=== PATIENT | male | born 1955 | race Native Hawaiian/Other Pacific Islander ===

== ENCOUNTER 2016-09-30 08:06 | Outpatient (CLI) | payer BC ==
[~2016-09-30 08:06] MED LIST: CLOP75TA2 PO; FURO40TA93 PO; GLIP10TA55 PO; HYDR25TA15 PO; HYZAAR1 TA1 PO; LANTUS100 MG/ML SC; METO50TA27 PO; METO5TAB38 PO; MINO10TA PO; PANT40TA PO; POT GLUCONAT595 MG PO; SIMV40TA57 PO; [UNRECOGNIZED DRUG - OTHER] PO
[2016-09-30 09:08] LABS: PLATELET COUNT 185 K/uL (142-355)
[2016-09-30 09:30] LABS: POTASSIUM 3.4 mmol/L (3.6-5.2); SODIUM 135 mmol/L (136-145)
== END 2016-09-30 20:07 | disposition home or self-care (01) ==
LOC: LABW 08:06
PROVIDERS: Nurse Practitioner Family
DX: J20.9 Acute bronchitis, unspecified (principal)
CPT/HCPCS: 36415; 80053; 85027

== ENCOUNTER 2016-10-06 16:01 | Outpatient (CLI) | payer BC | END 2016-10-06 20:39 | disposition home or self-care (01) | LOC: RAD 16:01 | DX: M54.41 Lumbago with sciatica, right side (principal) ==

== ENCOUNTER 2017-05-31 13:17 | Inpatient (IN) | payer BC ==
[2017-05-31] VITALS (10 sets, daily range): BP systolic 183–201; BP diastolic 96–108; TEMP 98.3–98.4; Ht 182.9 cm; Wt 123.6 kg
[~2017-05-31] VITALS: Ht 182.9 cm; Wt 123.6 kg
[2017-05-31 16:04] LABS: PLATELET COUNT 164 K/uL (142-355)
[2017-05-31 16:28] LABS: POTASSIUM 3.2 mmol/L (3.6-5.2); SODIUM 138 mmol/L (136-145)
[2017-05-31] MEDS ORDERED: POT CHLORIDE10 MEQ OR (17:43)
[2017-05-31] MEDS ORDERED: METFTAB PO (17:44)
[2017-05-31] MEDS ORDERED: GLIP10TA55 PO (17:45)
[2017-05-31] MEDS ORDERED: HUMALOG KW200 UNIT/M SC (17:46)
[2017-06-01] VITALS (13 sets, daily range): BP systolic 150–196; BP diastolic 70–113; TEMP 97.3–99.6
[2017-06-01 06:00] LABS: POTASSIUM 3.5 mmol/L (3.6-5.2); SODIUM 135 mmol/L (136-145)
[2017-06-01 06:06] LABS: PLATELET COUNT 146 K/uL (142-355)
[2017-06-02] VITALS (11 sets, daily range): BP systolic 142–187; BP diastolic 78–108; TEMP 97.9–99.9
[2017-06-02 06:21] LABS: PLATELET COUNT 149 K/uL (142-355)
[2017-06-02 06:34] LABS: POTASSIUM 4.2 mmol/L (3.6-5.2); SODIUM 135 mmol/L (136-145)
[2017-06-03] VITALS: BP 134/73; TEMP 98.6
[2017-06-03 08:00] VITALS: BP 134/78; TEMP 98.9
[2017-06-03 08:18] LABS: PLATELET COUNT 144 K/uL (142-355)
[2017-06-03 08:30] LABS: POTASSIUM 3.5 mmol/L (3.6-5.2); SODIUM 135 mmol/L (136-145)
[2017-06-03 12:00] VITALS: BP 125/65; TEMP 98.8
[2017-06-03 16:00] VITALS: BP 117/72; TEMP 99.3
[2017-06-03 20:00] VITALS: BP 150/79; TEMP 98.3
[2017-06-04] VITALS: BP 139/79; TEMP 99
[2017-06-04 04:00] VITALS: BP 164/86; TEMP 98.4
[2017-06-04 05:51] LABS: PLATELET COUNT 143 K/uL (142-355)
[2017-06-04 06:31] LABS: POTASSIUM 3.7 mmol/L (3.6-5.2); SODIUM 137 mmol/L (136-145)
[2017-06-04 08:00] VITALS: BP 148/78; TEMP 98.1
== END 2017-06-04 11:05 | disposition home or self-care (01) | DRG 194 ==
LOC: ICU 13:17 → MED/SURG 06-02 13:40
PROVIDERS: ADMIT Family Medicine
DX: J16.8 Pneumonia due to other specified infectious organisms (principal); J44.1 Chronic obstructive pulmonary disease with (acute) exacerbation; I50.9 Heart failure, unspecified; E11.9 Type 2 diabetes mellitus without complications; E87.6 Hypokalemia; E83.42 Hypomagnesemia
CPT/HCPCS: 36415; 36600; 80053; 80202; 82805; 82948; 82962; 83735; 83880; 84100; 85027; 87040; 87070; 87205; 90732; 93005; 94640; 94664; 94668; 94760; 96372; J1650; J1940; J3475

== ENCOUNTER 2017-06-23 09:50 | Outpatient (CLI) | payer BC ==
[~2017-06-23 09:50] MED LIST changes: +HUMALOG KW200 UNIT/M SC; +METFTAB PO; +POT CHLORIDE10 MEQ OR
== END 2017-06-23 10:50 | disposition home or self-care (01) ==
LOC: RAD 09:50
DX: J18.8 Other pneumonia, unspecified organism (principal)

== ENCOUNTER 2017-08-19 14:33 | Outpatient (CLI) | payer BC | END 2017-08-19 19:43 | disposition home or self-care (01) | LOC: RAD 14:33 | DX: J44.1 Chronic obstructive pulmonary disease with (acute) exacerbation (principal) ==

== ENCOUNTER 2018-02-19 10:35 | Outpatient (CLI) | payer BC ==
[2018-02-19 10:52] LABS: PLATELET COUNT 173 K/uL (142-355)
[2018-02-19 10:58] LABS: POTASSIUM 3.5 mmol/L (3.6-5.2)
== END 2018-02-19 19:05 | disposition home or self-care (01) ==
LOC: LABW 10:35
PROVIDERS: Family Medicine
DX: I50.9 Heart failure, unspecified (principal)
CPT/HCPCS: 36415; 80053; 83880; 85027

== ENCOUNTER 2020-09-03 11:57 | Outpatient (CLI) | payer OTHER | END 2020-09-03 22:10 | disposition home or self-care (01) | LOC: RAD 11:57 | PROVIDERS: ATTEND Family Medicine | DX: J20.8 Acute bronchitis due to other specified organisms (principal) ==

== ENCOUNTER 2020-09-07 14:33 | Observation (INO) | payer OTHER ==
[~2020-09-07] VITALS: Ht 182.9 cm; Wt 115.9 kg
[2020-09-07 16:57] LABS: PLATELET COUNT 169 K/uL (142-355)
[2020-09-07 20:18] VITALS: BP 177/89; TEMP 99
[2020-09-07 20:43] VITALS: BP 181/99; TEMP 97.7; Ht 182.9 cm; Wt 115.9 kg
[2020-09-07 23:55] VITALS: BP 172/100; TEMP 98.3
[2020-09-08 04:00] VITALS: BP 160/96; TEMP 98.3
[2020-09-08] MEDS ORDERED: SPIRONOLACT25 MG PO (04:14)
[2020-09-08 05:24] LABS: PLATELET COUNT 165 K/uL (142-355)
[2020-09-08 05:42] LABS: POTASSIUM 4.5 mmol/L (3.6-5.2)
[2020-09-08 08:00] VITALS: BP 156/98; TEMP 98.1
[2020-09-08 12:00] VITALS: BP 182/107; TEMP 97.9
[2020-09-08 16:00] VITALS: BP 145/85; TEMP 97.9
[2020-09-08 20:00] VITALS: BP 148/80; TEMP 98
[2020-09-09 00:03] VITALS: BP 129/70; TEMP 97.9
[2020-09-09 04:15] VITALS: BP 137/75; TEMP 98.3
[2020-09-09 06:32] LABS: PLATELET COUNT 161 K/uL (142-355)
[2020-09-09 06:44] LABS: POTASSIUM 4.2 mmol/L (3.6-5.2)
[2020-09-09 08:00] VITALS: BP 156/91; TEMP 98.6
[2020-09-09 12:00] VITALS: BP 160/85; TEMP 97.9
[2020-09-09] MEDS ORDERED: ZINC220 M1 PO (15:58)
[2020-09-09] MEDS ORDERED: VITAMIN D PO (15:58)
[2020-09-09] MEDS ORDERED: PULMICORT180 MCG/AC INH (15:58)
[2020-09-09] MEDS ORDERED: VITAMIN C500 M7 PO (15:58)
[2020-09-09] MEDS ORDERED: IPRAAER INH (15:58)
[2020-09-09] MEDS ORDERED: PEPCID IV (15:58)
== END 2020-09-09 17:20 | disposition home or self-care (01) ==
LOC: MED/SURG 14:33
PROVIDERS: ADMIT Family Medicine; ATTEND Family Medicine
DX: J44.0 Chronic obstructive pulmonary disease with (acute) lower respiratory infection (principal); J18.8 Other pneumonia, unspecified organism; J44.1 Chronic obstructive pulmonary disease with (acute) exacerbation; J20.9 Acute bronchitis, unspecified; E11.9 Type 2 diabetes mellitus without complications; I11.0 Hypertensive heart disease with heart failure; I50.9 Heart failure, unspecified; E66.01 Morbid (severe) obesity due to excess calories; G47.39 Other sleep apnea; F32.9 Major depressive disorder, single episode, unspecified; L40.8 Other psoriasis; R09.02 Hypoxemia; I25.10 Atherosclerotic heart disease of native coronary artery without angina pectoris
CPT/HCPCS: 36415; 80053; 82728; 82948; 83735; 83880; 84100; 85027; 85379; 86140; 87040; 87635; 93005; 94667; 94668; 94760; 96365; 96367; 96372; 96375; 99220; G0378; G0379; J0456; J0696; J1100; J1650; J1815; U0003

== ENCOUNTER 2020-11-28 11:19 | Outpatient (CLI) | payer OTHER ==
[~2020-11-28 11:19] MED LIST changes: +IPRAAER INH; +PEPCID IV; +PULMICORT180 MCG/AC INH; +SPIRONOLACT25 MG PO; +VITAMIN C500 M7 PO; +VITAMIN D PO; +ZINC220 M1 PO
[2020-11-28 11:53] LABS: POTASSIUM 4.1 mmol/L (3.6-5.2); SODIUM 140 mmol/L (136-145)
== END 2020-11-28 21:32 | disposition home or self-care (01) ==
LOC: LABW 11:19
PROVIDERS: ATTEND Nurse Practitioner Family
DX: J44.1 Chronic obstructive pulmonary disease with (acute) exacerbation (principal); I50.9 Heart failure, unspecified
CPT/HCPCS: 36415; 80053; 82550; 82553; 83880; 84484

== ENCOUNTER 2021-04-28 14:38 | Outpatient (CLI) | payer OTHER ==
[~2021-04-28] VITALS: Ht 182.9 cm; Wt 113.4 kg
== END 2021-04-28 21:19 | disposition home or self-care (01) ==
LOC: INF 14:38
PROVIDERS: ATTEND Family Medicine
DX: Z23 Encounter for immunization (principal); U07.1 COVID-19
CPT/HCPCS: 96365; M0244

== ENCOUNTER 2021-07-07 15:35 | Outpatient (CLI) | payer OTHER | END 2021-07-07 20:27 | disposition home or self-care (01) | LOC: RAD 15:35 | PROVIDERS: ATTEND Nurse Practitioner Family | DX: J44.1 Chronic obstructive pulmonary disease with (acute) exacerbation (principal); I50.9 Heart failure, unspecified | CPT/HCPCS: 36415; 80053; 82550; 82553; 83880; 84484 ==

== ENCOUNTER 2021-07-07 17:34 | Emergency (ER) | payer OTHER ==
[~2021-07-07] VITALS: Ht 182.9 cm; Wt 108.9 kg
[2021-07-07 18:41] LABS: PLATELET COUNT 171 K/uL (142-355)
[2021-07-07 19:13] LABS: PARTIAL THROMBOPLASTIN TIME 25.2 SECONDS (24.5-33.6)
[2021-07-07 19:21] LABS: POTASSIUM 3.9 mmol/L (3.6-5.2)
[2021-07-07 21:00] VITALS: BP 166/106; TEMP 98.1
== END 2021-07-07 21:05 | disposition home or self-care (01) ==
LOC: ED 17:34
PROVIDERS: Emergency Medicine
DX: R06.09 Other forms of dyspnea (principal); I50.9 Heart failure, unspecified; Z86.16 Personal history of COVID-19
CPT/HCPCS: 36415; 80053; 83880; 84484; 85027; 85379; 85610; 85730; 93005; 96374; 99284; J1940

== ENCOUNTER 2021-07-16 10:47 | Outpatient (CLI) | payer OTHER ==
[2021-07-16 11:19] LABS: POTASSIUM 3.9 mmol/L (3.6-5.2)
== END 2021-07-16 20:39 | disposition home or self-care (01) ==
LOC: LABW 10:47
PROVIDERS: ATTEND Internal Medicine Cardiovascular Disease
DX: Z79.899 Other long term (current) drug therapy (principal)
CPT/HCPCS: 36415; 80048; 83880

== ENCOUNTER 2022-01-19 09:50 | Outpatient (CLI) | payer OTHER | END 2022-01-19 18:57 | disposition home or self-care (01) | LOC: US 09:50 | PROVIDERS: ATTEND Nurse Practitioner Family | DX: I73.9 Peripheral vascular disease, unspecified (principal) ==

== ENCOUNTER 2022-01-29 10:38 | Inpatient (IN) | payer OTHER ==
[~2022-01-29] VITALS: Ht 182.9 cm; Wt 106.8 kg
[2022-01-29 10:47] VITALS: BP 147/95; TEMP 98.2
[2022-01-29 11:21] LABS: PLATELET COUNT 121 K/uL (142-355)
[2022-01-29 11:30] LABS: POTASSIUM 5.2 mmol/L (3.6-5.2)
[2022-01-29 16:33] VITALS: BP 155/88; TEMP 99.5; Ht 182.9 cm; Wt 106.8 kg
[2022-01-29 20:00] VITALS: BP 151/93; TEMP 98.3
[2022-01-29] MEDS ORDERED: TRIDERM0.1 % EX (20:56)
[2022-01-29] MEDS ORDERED: SIMV20TA2 PO (20:57)
[2022-01-29] MEDS ORDERED: MUPIROCIN2 % EX (20:58)
[2022-01-29] MEDS ORDERED: CEPHALEXIN500 MG PO (21:01)
[2022-01-29] MEDS ORDERED: COZAAR100 MG PO (21:02)
[2022-01-29] MEDS ORDERED: METF500T PO (21:04)
[2022-01-29] MEDS ORDERED: BUDESONIDE/FORM1 AE1 INH (21:10)
[2022-01-30] VITALS: BP 147/86; TEMP 97.6
[2022-01-30 04:00] VITALS: BP 139/82; TEMP 98.1
[2022-01-30 05:28] LABS: PLATELET COUNT 122 K/uL (142-355)
[2022-01-30 05:47] LABS: POTASSIUM 4.5 mmol/L (3.6-5.2)
[2022-01-30 08:00] VITALS: BP 139/91; TEMP 97.6
[2022-01-30 12:00] VITALS: BP 151/83; TEMP 98
[2022-01-30] MEDS ORDERED: LOSA50TA PO (14:18)
[2022-01-30] MEDS ORDERED: METO50TA27 PO (14:18)
== END 2022-01-30 15:11 | disposition home or self-care (01) | DRG 100 ==
LOC: ED 10:38 → MED/SURG 13:30
PROVIDERS: ADMIT Hospitalist; ATTEND Internal Medicine
DX: G40.89 Other seizures (principal); J18.1 Lobar pneumonia, unspecified organism; E11.9 Type 2 diabetes mellitus without complications; Z79.4 Long term (current) use of insulin; I10 Essential (primary) hypertension; I25.10 Atherosclerotic heart disease of native coronary artery without angina pectoris; I73.89 Other specified peripheral vascular diseases; I50.9 Heart failure, unspecified; K21.9 Gastro-esophageal reflux disease without esophagitis; E86.0 Dehydration
CPT/HCPCS: 36415; 80053; 80307; 80320; 81000; 82550; 83605; 83880; 84443; 84484; 85027; 85610; 85730; 87040; 87635; 93005; 94664; 96361; 96365; 96375; 99284; J1200; J1650; J1815; J1940; J1956; J2405; J2930; J3490; U0003

== ENCOUNTER 2022-02-10 14:24 | Outpatient (CLI) | payer OTHER ==
[~2022-02-10 14:24] MED LIST changes: +BUDESONIDE/FORM1 AE1 INH; +CEPHALEXIN500 MG PO; +COZAAR100 MG PO; +LOSA50TA PO; +METF500T PO; +MUPIROCIN2 % EX; +SIMV20TA2 PO; +TRIDERM0.1 % EX
== END 2022-02-10 19:01 | disposition home or self-care (01) ==
LOC: RAD 14:24
PROVIDERS: ATTEND Nurse Practitioner Primary Care
DX: R06.09 Other forms of dyspnea (principal)

== ENCOUNTER 2022-03-04 16:16 | Emergency (ER) | payer OTHER ==
[~2022-03-04] VITALS: Ht 182.9 cm; Wt 106.6 kg
[2022-03-04 17:01] LABS: PLATELET COUNT 186 K/uL (142-355)
[2022-03-04 17:09] LABS: POTASSIUM 4.3 mmol/L (3.6-5.2)
[2022-03-04 20:15] VITALS: BP 153/105; TEMP 97.2
== END 2022-03-04 20:15 | disposition short-term general hospital (02) ==
LOC: ED 16:16
PROVIDERS: Emergency Medicine
DX: I21.4 Non-ST elevation (NSTEMI) myocardial infarction (principal); I50.9 Heart failure, unspecified; I10 Essential (primary) hypertension; I25.2 Old myocardial infarction; I25.810 Atherosclerosis of coronary artery bypass graft(s) without angina pectoris
CPT/HCPCS: 36415; 80053; 83880; 84484; 85027; 87040; 93005; 96372; 96374; 99284; J1650; J1940

== ENCOUNTER 2022-08-05 19:48 | Inpatient (IN) | payer OTHER ==
[2022-08-05] VITALS (8 sets, daily range): BP systolic 152–215; BP diastolic 81–125; TEMP 98.8
[~2022-08-05] VITALS: Ht 182.9 cm; Wt 111.4 kg
[2022-08-05 20:54] LABS: PLATELET COUNT 152 K/uL (142-355)
[2022-08-05 21:10] LABS: POTASSIUM 4.2 mmol/L (3.6-5.2)
[2022-08-06 00:30] VITALS: BP 133/62; TEMP 99.5; Ht 182.9 cm; Wt 111.4 kg
[2022-08-06 04:00] VITALS: BP 144/80; TEMP 99.5
[2022-08-06 04:19] LABS: PLATELET COUNT 95 K/uL (142-355)
[2022-08-06 08:00] VITALS: BP 136/81; TEMP 98.5
[2022-08-06] MEDS ORDERED: MONT10TA PO (11:48)
[2022-08-06] MEDS ORDERED: ALBUSOL INH (11:49)
[2022-08-06] MEDS ORDERED: PROMETHAZINE DM1 SOL PO (11:50)
[2022-08-06] MEDS ORDERED: ALBUTEROL108 MCG/AC INH (11:50)
[2022-08-06] MEDS ORDERED: FAMO20TA4 PO (11:51)
[2022-08-06] MEDS ORDERED: CRESTOR20 MG PO (11:51)
[2022-08-06] MEDS ORDERED: CARV25TA PO (11:52)
[2022-08-06] MEDS ORDERED: ENTRESTO 97-1031 TAB PO (11:52)
[2022-08-06 12:00] VITALS: BP 137/84; TEMP 98
[2022-08-06] MEDS ORDERED: FARXIGA10 MG PO (13:17)
[2022-08-06] MEDS ORDERED: OTEZLA 10 & 201 TAB PO (13:17)
[2022-08-06] MEDS ORDERED: ASA LOW DOSE81 MG PO (13:20)
[2022-08-06] MEDS ORDERED: DIPH25CA90 PO (13:21)
[2022-08-06] MEDS ORDERED: EQUATE SEVERE SINUS PO (13:25)
[2022-08-06] MEDS ORDERED: SPIRONOLACT25 MG PO (13:27)
[2022-08-06 16:00] VITALS: BP 136/87; TEMP 98
[2022-08-06 20:00] VITALS: BP 151/86; TEMP 98.7
[2022-08-07] VITALS (7 sets, daily range): BP systolic 122–156; BP diastolic 73–91; TEMP 97.8–98.6
[2022-08-07 04:36] LABS: PLATELET COUNT 97 K/uL (142-355)
[2022-08-07 04:52] LABS: POTASSIUM 3.9 mmol/L (3.6-5.2)
[2022-08-08 03:40] VITALS: BP 144/75; TEMP 98.5
[2022-08-08 08:00] VITALS: BP 151/73; TEMP 98.2
[2022-08-08 12:00] VITALS: BP 148/74; TEMP 97.9
[2022-08-08 16:00] VITALS: BP 148/80; TEMP 98.1
[2022-08-08 19:45] VITALS: BP 140/83; TEMP 99.1
[2022-08-08 23:43] VITALS: BP 131/69; TEMP 99.6
[2022-08-09 03:37] VITALS: BP 110/71; TEMP 98.6
[2022-08-09 05:32] LABS: PLATELET COUNT 128 K/uL (142-355)
[2022-08-09 05:42] LABS: POTASSIUM 4.1 mmol/L (3.6-5.2)
[2022-08-09 08:00] VITALS: BP 152/78; TEMP 98.8
[2022-08-09 12:00] VITALS: BP 153/83; TEMP 98.6
[2022-08-09 14:51] VITALS: TEMP 99.5
[2022-08-09 19:45] VITALS: BP 169/89; TEMP 100.3
[2022-08-09 23:40] VITALS: BP 120/56; TEMP 99.1
[2022-08-10 03:46] VITALS: BP 138/56; TEMP 98.6
[2022-08-10 08:00] VITALS: BP 159/88; TEMP 98.6
[2022-08-10] MEDS ORDERED: CIPRO500 MG PO (08:57)
[2022-08-10] MEDS ORDERED: METR250T19 PO (08:58)
[2022-08-10] MEDS ORDERED: DOXYCYCL HYC100 MG PO (09:14)
== END 2022-08-10 10:08 | disposition home or self-care (01) | DRG 392 ==
LOC: ED 19:48 → MED/SURG 23:30
PROVIDERS: Family Medicine; ADMIT Emergency Medicine Emergency Medical Services; ATTEND Internal Medicine
DX: K52.89 Other specified noninfective gastroenteritis and colitis (principal); N17.8 Other acute kidney failure; R78.81 Bacteremia; I11.0 Hypertensive heart disease with heart failure; I50.9 Heart failure, unspecified; E78.49 Other hyperlipidemia; K21.9 Gastro-esophageal reflux disease without esophagitis; I25.10 Atherosclerotic heart disease of native coronary artery without angina pectoris; Z95.1 Presence of aortocoronary bypass graft; J44.9 Chronic obstructive pulmonary disease, unspecified; B95.3 Streptococcus pneumoniae as the cause of diseases classified elsewhere; E11.65 Type 2 diabetes mellitus with hyperglycemia
CPT/HCPCS: 36415; 80053; 80202; 81002; 82948; 83735; 84100; 85027; 87015; 87040; 87045; 87077; 87185; 87186; 87205; 87324; 87338; 87425; 87449; 87635; 87899; 94664; 94760; 96365; 96367; 96375; 99284; J1940; J1956; J2405; J2543; J3370; J3490; U0003

== ENCOUNTER 2022-08-13 16:54 | Outpatient (CLI) | payer OTHER ==
[~2022-08-13 16:54] MED LIST changes: +ALBUSOL INH; +ALBUTEROL108 MCG/AC INH; +ASA LOW DOSE81 MG PO; +CARV25TA PO; +CIPRO500 MG PO; +CRESTOR20 MG PO; +DIPH25CA90 PO; +DOXYCYCL HYC100 MG PO; +ENTRESTO 97-1031 TAB PO; +EQUATE SEVERE SINUS PO; +FAMO20TA4 PO; +FARXIGA10 MG PO; +METR250T19 PO; +MONT10TA PO; +OTEZLA 10 & 201 TAB PO; +PROMETHAZINE DM1 SOL PO
[2022-08-13 17:03] LABS: PLATELET COUNT 291 K/uL (142-355)
[2022-08-13 17:07] LABS: POTASSIUM 3.7 mmol/L (3.6-5.2)
== END 2022-08-13 19:06 | disposition home or self-care (01) ==
LOC: LAB 16:54
PROVIDERS: ATTEND Nurse Practitioner Family
DX: R60.0 Localized edema (principal)
CPT/HCPCS: 36415; 80053; 83880; 85027

== ENCOUNTER 2022-08-17 09:04 | Outpatient (CLI) | payer OTHER ==
[2022-08-17 09:35] LABS: PLATELET COUNT 352 K/uL (142-355)
[2022-08-17 09:44] LABS: POTASSIUM 4.1 mmol/L (3.6-5.2)
== END 2022-08-17 18:54 | disposition home or self-care (01) ==
LOC: RESP 09:04
PROVIDERS: ATTEND Nurse Practitioner Family
DX: R60.0 Localized edema (principal); I48.91 Unspecified atrial fibrillation
CPT/HCPCS: 36415; 80053; 82550; 82553; 83880; 84484; 85027; 93005

== ENCOUNTER 2023-05-30 15:11 | Observation (INO) | payer OTHER ==
[~2023-05-30] VITALS: Ht 182.9 cm; Wt 128.4 kg
[2023-05-30 15:18] VITALS: BP 135/89; TEMP 98.9
[2023-05-30 15:56] LABS: PLATELET COUNT 148 K/uL (142-355)
[2023-05-30 16:01] LABS: POTASSIUM 3.8 mmol/L (3.6-5.2)
[2023-05-30 20:00] VITALS: BP 156/93; TEMP 98.8
[2023-05-31] VITALS (8 sets, daily range): BP systolic 106–156; BP diastolic 51–93; TEMP 97.8–98.8; Ht 182.9 cm; Wt 128.4 kg
[2023-05-31 05:17] LABS: PLATELET COUNT 158 K/uL (142-355)
[2023-05-31 05:47] LABS: POTASSIUM 4.7 mmol/L (3.6-5.2)
[2023-05-31] MEDS ORDERED: LIPITOR80 MG PO (12:56)
[2023-05-31] MEDS ORDERED: EZET10TA13 PO (12:57)
[2023-05-31] MEDS ORDERED: LISI10TA11 PO (12:58)
[2023-05-31] MEDS ORDERED: METO25TA2 PO (12:59)
[2023-05-31] MEDS ORDERED: PRAS10TA PO (13:00)
[2023-06-01 03:52] VITALS: BP 103/53; TEMP 97.7
[2023-06-01 07:55] VITALS: BP 134/76; TEMP 97.6
[2023-06-01] MEDS ORDERED: PRED20TA27 PO (09:03)
[2023-06-01] MEDS ORDERED: LEVAQUIN250 MG PO (09:03)
== END 2023-06-01 11:13 | disposition home or self-care (01) ==
LOC: ED 15:11 → MED/SURG 18:18
PROVIDERS: Family Medicine; ADMIT Internal Medicine Endocrinology, Diabetes & Metabolism; ATTEND Internal Medicine Endocrinology, Diabetes & Metabolism
DX: J18.9 Pneumonia, unspecified organism (principal); R06.02 Shortness of breath; I25.10 Atherosclerotic heart disease of native coronary artery without angina pectoris; E11.9 Type 2 diabetes mellitus without complications; I10 Essential (primary) hypertension; E66.9 Obesity, unspecified; Z68.30 Body mass index [BMI] 30.0-30.9, adult; Z79.01 Long term (current) use of anticoagulants
CPT/HCPCS: 36415; 80048; 80053; 82948; 85027; 87040; 87635; 94664; 94760; 96361; 96365; 96366; 96367; 96368; 96372; 96374; 96375; 99221; 99284; G0378; J0456; J1100; J1815; J2920; U0003